=== PATIENT | female | born 1950 | race Caucasian/White ===

== ENCOUNTER → 2017-09-04 | Outpatient (CLI) | payer MEDICARE ==
--- NOTE | 2017-09-05 11:52 | Diagnostic Imaging Report ---
INDICATION: Routine screening. Comparison is made with prior mammogram from 01/29/2012. The current study was also evaluated with a Computer Aided Detection (CAD) system. Moderate parenchymal density is identified bilaterally. There is a circumscribed rounded density identified in the left breast mid depth approximately 8 mm in size. This appears to be superiorly located on the MLO view at approximately 12 to 1 o'clock location. There appears to be a smaller adjacent circumscribed density. These may represent cysts. There are benign calcifications present. No malignant appearing microcalcifications are seen. The axillae are unremarkable. IMPRESSION: BI-RADS zero Enlarging density in the superior left breast 12-1 o'clock location at mid depth, likely enlarging cysts. Further evaluation with ultrasound is recommended for confirmation. Dictated by: Dictated on workstation # [id number]
== END ==
LOC: RAD 09:57
PROVIDERS: ATTEND Family Medicine
DX: Z12.31 Encounter for screening mammogram for malignant neoplasm of breast (principal)
CPT/HCPCS: 77067

== ENCOUNTER → 2017-09-21 | Outpatient (CLI) | payer MEDICARE ==
--- NOTE | 2017-09-21 08:25 | Diagnostic Imaging Report ---
Indication: Left breast density. Patient presents for additional views. Comparison is made with recent screening study from 09/04/2017. The current study was also evaluated with a Computer Aided Detection (CAD) system. 3-D spot compression cc and mL views as well as conventional 3-D 90 degree lateral view was performed. Additional views confirm a fairly well defined density in the upper and slightly outer left breast at mid depth, likely cysts. No other mass is seen. IMPRESSION: BI-RADS zero Additional views confirm the presence of a well-defined density in the upper-outer left breast. Further evaluation with ultrasound is recommended. ACR BI-RADS Category 0: Incomplete. (Needs additional imaging evaluation). Result letter will be mailed to the patient. Note: At least 10% of breast cancer is not imaged by mammography. Dictated by: Dictated on workstation # [id number]
--- NOTE | 2017-09-21 18:04 | Diagnostic Imaging Report ---
INDICATION: Left breast density. The study is performed for further evaluation. COMPARISON: Correlation is made with the diagnostic mammogram earlier the same day. FINDINGS: Sonographic interrogation of the upper and outer aspect of the left breast was performed. There is a simple cyst at the 12:30 location of the left breast, 3 cm from the nipple measuring 12 mm x 6 mm x 8 mm. This does correspond in size and location to the density noted on mammography. No solid mass is detected. There appears to be a smaller adjacent cyst present. IMPRESSION: Simple cyst at 12:30 location of the left breast corresponding to the mammographic abnormality. The patient may return to routine annual screening mammography. ACR BI-RADS Category 2: Benign findings. Dictated by: Dictated on workstation # [id number]
== END ==
LOC: RAD 07:55
PROVIDERS: ATTEND Nurse Practitioner Family
DX: N60.02 Solitary cyst of left breast (principal)
CPT/HCPCS: 76642

== ENCOUNTER → 2018-08-26 | Outpatient (CLI) | payer MEDICARE ==
--- NOTE | 2018-08-26 19:18 | Diagnostic Imaging Report ---
PROCEDURE: US Thyroid. TECHNIQUE: Multiple real-time grayscale images were obtained of the thyroid in various projections. INDICATION: Thyromegaly. FINDINGS: The right thyroid lobe measures 4.2 x 1.5 x 1.5 cm. There is an upper pole nodule, hyperechoic with some echogenic foci which may reflect calcifications. It measures 9 mm maximal. There is a lower pole nodule in the right lobe measuring 9 mm maximal, which appears largely cystic with a coarse eccentric calcification. The left lobe measures 4.1 x 1.4 x 1.2 cm with a 7 mm nodule in its upper pole anteriorly and a 1.2 cm nodule in its lower pole which appears largely cystic. IMPRESSION: Bilateral thyroid nodules, the largest of these are cystic with eccentric coarse benign calcifications. A 9 mm mass in the upper pole of the right lobe is predominantly hyperechoic but is heterogeneous and does show punctate calcifications; its followup is recommended. Repeat exam within one year's time is suggested. Dictated by: Dictated on workstation # [id number]
== END ==
LOC: RAD 09:23
PROVIDERS: ATTEND Family Medicine
DX: E04.2 Nontoxic multinodular goiter (principal)
CPT/HCPCS: 76536

== ENCOUNTER 2018-10-09 10:00 | Outpatient (CLI) | payer MEDICARE ==
[~2018-10-09] VITALS: Ht 177.8 cm; Wt 68.0 kg
[2018-10-09] MEDS ORDERED: CHOL200014 PO (10:10)
[2018-10-09] MEDS ORDERED: CYAN250010 PO (10:10)
[2018-10-09] MEDS ORDERED: MULT-974 PO (10:10)
[2018-10-09] MEDS ORDERED: CALC-927 PO (10:10)
== END 2018-10-09 11:09 ==
LOC: PREOP 10:00
PROVIDERS: ATTEND Surgery
DX: Z01.818 Encounter for other preprocedural examination (principal)

== ENCOUNTER 2018-10-15 07:38 | Day surgery (SDC) | payer MEDICARE ==
[~2018-10-15] VITALS: Ht 177.8 cm; Wt 68.0 kg
[~2018-10-15 07:38] MED LIST: CALC-927 PO; CHOL200014 PO; CYAN250010 PO; MULT-974 PO
[2018-10-15] MEDS ORDERED: LACTATED RINGERS 1,000 ML IV ONE (07:52)
[2018-10-15 08:00] VITALS: BP 113/81
[2018-10-15] MEDS ORDERED: LACTATED RINGERS 1,000 ML IV PRN (08:00)
[2018-10-15] MEDS ORDERED: proPOfol 200 MG/20 ML (DIPRIVAN) VIAL IV ONE (08:54)
[2018-10-15] MEDS ORDERED: MIDAZOLAM 2 MG/2 ML (VERSED) VIAL ONE (08:54)
--- NOTE | 2018-10-15 09:52 | Progress Note-Post Operative ---
Post-Operative Progess Note Surgeon (s)/Tele Rn (s) Surgeon YANELIS ECHEVARRIA DO Tele Rn: na Pre-Operative Diagnosis screening colonoscopy Post-Operative Diagnosis colon polyp, diverticulosis Procedure & Operative Findings Date of Procedure 10/15/18 Procedure Performed/Findings colonoscopy c hot bx polypectomy Anesthesia Type per mda Estimated Blood Loss Estimated blood loss (mL): na Specimens/Packing Specimens Removed transverse colon polyp YANELIS ECHEVARRIA DO Oct 15, 2018 09:52
[2018-10-15 09:55] VITALS: BP 112/65
--- NOTE | 2018-10-15 09:55 | Discharge Inst-Simple/Standard ---
Discharge Inst-Standard Patient Instructions/Follow Up Plan of Care/Instructions/FU: 2weeks Nedra Activity as Tolerated: Yes Discharge Diet: Regular Diet (high fiber) YANELIS ECHEVARRIA DO Oct 15, 2018 09:55
[2018-10-15 10:25] VITALS: BP 113/93
[2018-10-15 10:35] VITALS: BP 113/93
--- OUTSIDE RECORDS SUMMARY | 2018-10-15 10:59 | XMS REPORT | CCD ---
Author Author Shirley Ramos Organization Shirley Ramos MD, [facility] Address [address] [place] [address] Phone Care Team Providers Care Mains And Service Supervisor Name Role Phone PP Unavailable CCM Unavailable Summary Purpose Interface Exchange Insurance Providers Payer name Policy type / Coverage type Covered green party ID Effective Begin Date Effective End Date WPS Medicare Part B Medicare Part B [id number] Unknown [facility] Medicare Part B [id number] Unknown Family history Sister Diagnosis Age At Onset No Known Diseases N/A Father Diagnosis Age At Onset Arthritis Unknown old age Unknown Brother Diagnosis Age At Onset No Known Diseases N/A Mother Diagnosis Age At Onset Breast cancer Unknown motor vehicle accident Unknown Social History Social History Element Codes Description Effective Dates Marital status Unknown Dio 08/28/2017 Number of children Unknown 4 40, 38, 33, 30 y/o - they all live away from [place] 08/[address]: 024349419 Never smoker 08/28/[address]: 488745450 Never drinks alcohol 08/28/2017 Has the patient ever used illegal drugs? Unknown Has never used illegal drugs 08/28/2017 Allergies, Adverse Reactions, Alerts Substance Reaction Codes Entered Date Inactivated Date Status * NO KNOWN DRUG ALLERGIES Unknown 08/28/2017 No Inactive Date Active Past Medical History Illness Codes Condition Status Onset Date Resolved Date Encounter for gynecological examination (general) (routine ) with abnormal findings ICD-9: V72.31 ICD-10: Z01.411 Active 08/22/2018 Unknown Other fatigue ICD-9: 780.79 ICD-10: R53.83 Active 08/28/2017 Unknown Polyp of cervix uteri ICD-9: 622.7 ICD-10: N84.1 Active 08/22/2018 Unknown Actinic keratosis ICD- 9: 702.0 ICD-10: L57.0 Active 06/04/2018 Unknown Diffuse cystic mastopathy of right breast ICD-9: 610.1 ICD-10: N60.11 Active 08/28/2017 Unknown Problems Condition Codes Effective Dates Condition Status Encounter for gynecological examination (general) (routine ) with abnormal findings ICD-9: V72.31 ICD-10: Z01.411 08/22/2018 Active Other fatigue ICD-9: 780.79 ICD-10: R53.83 08/28/2017 Active Polyp of cervix uteri ICD-9: 622.7 ICD-10: N84.1 08/22/2018 Active Actinic keratosis ICD- 9: 702.0 ICD-10: L57.0 06/04/2018 Active Diffuse cystic mastopathy of right breast ICD-9: 610.1 ICD-10: N60.11 08/28/2017 Active Medications Medication Codes Instructions Start Date Stop Date Status Fill Instructions citalopram 20 mg tablet RxNorm: 902701 1 Tablet(s) PO daily 06/03/2018 Inactive citalopram 20 mg tablet RxNorm: 675647 1 Tablet(s) PO daily 11/18/2017 Inactive citalopram 20 mg tablet RxNorm: 477354 1 Tablet(s) PO daily No Start Date 08/27/2017 Inactive Medication Administered No Medication Administered data Immunizations Vaccine Codes Date Status Tetanus, Diptheria, Pertussis CVX: 113 completed Tetanus/Diptheria CVX: 113 12/30/2006 completed Assessments Condition Codes Effective Dates Polyp of cervix uteri ICD-10: N84.1 ICD-9: 622.7 08/22/2018 Encounter for gynecological examination (general) (routine) with abnormal findings ICD-10: Z01.411 ICD-9: V72.31 08/22/2018 Other fatigue ICD-10: R53.83 ICD-9: 780.79 08/22/2018 Actinic keratosis ICD-10: L57.0 ICD-9: 702.0 06/04/2018 Diffuse cystic mastopathy of right breast ICD-10: N60.11 ICD-9: 610.1 08/28/2017 Reason For Visit Reason For Visit Effective Dates Notes well woman exam (65+ years) 08/22/2018 skin lesion 06/04/2018 breast complaint 08/28/2017 Results Observation Observation Code Item Item Code Result Date Cbc With Differential Ord2 WBC 5.41 K/ul 08/28/2018 Cbc With Differential Ord2 RBC 4.72 M/ul 08/28/2018 Cbc With Differential Ord2 HGB 13.8 g/dl 08/28/2018 Cbc With Differential Ord2 HCT 42.8 % 08/28/2018 Cbc With Differential Ord2 Neut% 57.9 % 08/28/2018 Cbc With Differential Ord2 MCV 90.7 fl 08/28/2018 Cbc With Differential Ord2 Lymph% 27.5 % 08/28/2018 Cbc With Differential Ord2 MCH 29.2 pg 08/28/2018 Cbc With Differential Ord2 Mohave% 8.7 % 08/28/2018 Cbc With Differential Ord2 MCHC 32.2 pg 08/28/2018 Cbc With Differential Ord2 Eos% 4.6 % 08/28/2018 Cbc With Differential Ord2 PLT 289 K/ul 08/28/2018 Cbc With Differential Ord2 Baso% 1.3 % 08/28/2018 Cbc With Differential Ord2 RDW 14.2 % 08/28/2018 Cbc With Differential Ord2 Neut ABS# 3.13 K/ul 08/28/2018 Cbc With Differential Ord2 Lymph ABS# 1.49 K/ul 08/28/2018 Cbc With Differential Ord2 [place] ABS# 0.5 K/ul 08/28/2018 Cbc With Differential Ord2 Eos ABS# 0.3 K/ul 08/28/2018 Cbc With Differential Ord2 Baso ABS# 0.1 K/ul 08/28/2018 Cbc With Differential Ord2 WBC 4.23 K/ul 10/12/2017 Cbc With Differential Ord2 RBC 4.76 M/ul 10/12/2017 Cbc With Differential Ord2 HGB 13.6 g/dl 10/12/2017 Cbc With Differential Ord2 HCT 42.6 % 10/12/2017 Cbc With Differential Ord2 Neut% 44.1 % 10/12/2017 Cbc With Differential Ord2 MCV 89.5 fl 10/12/2017 Cbc With Differential Ord2 Lymph% 36.6 % 10/12/2017 Cbc With Differential Ord2 MCH 28.6 pg 10/12/2017 Cbc With Differential Ord2 Mohave% 9.2 % 10/12/2017 Cbc With Differential Ord2 MCHC 31.9 pg 10/12/2017 Cbc With Differential Ord2 Eos% 8.0 % 10/12/2017 Cbc With Differential Ord2 PLT 327 K/ul 10/12/2017 Cbc With Differential Ord2 Baso% 2.1 % 10/12/2017 Cbc With Differential Ord2 RDW 14.2 % 10/12/2017 Cbc With Differential Ord2 Neut ABS# 1.86 K/ul 10/12/2017 Cbc With Differential Ord2 Lymph ABS# 1.55 K/ul 10/12/2017 Cbc With Differential Ord2 Mohave ABS# 0.4 K/ul 10/12/2017 Cbc With Differential Ord2 Eos ABS# 0.3 K/ul 10/12/2017 Cbc With Differential Ord2 Baso ABS# 0.1 K/ul 10/12/2017 Comp Metabolic Dag113 NA 140 mEq/L 08/29/2017 Comp Metabolic Mta107 K 4.2 mEq/L 08/29/2017 Comp Metabolic Ohn239 CL 106 mEq/L 08/29/2017 Comp Metabolic Ypq017 CO2 28.0 mEq/L 08/29/2017 Comp Metabolic Myn211 ANION GAP 10 08/29/2017 Comp Metabolic Feo456 GLUCOSE 81 mg/dL 08/29/2017 Comp Metabolic Sld505 Creat 0.6 mg/dL 08/29/2017 Comp Metabolic Awz600 eGFR 106 ml/min/1.73m2 08/29/2017 Comp Metabolic Drg790 BUN 13 mg/dL 08/29/2017 Comp Metabolic Axp910 B/C Ratio 21.7 Ratio 08/29/2017 Comp Metabolic Roh766 CALCIUM 9.3 mg/dL 08/29/2017 Comp Metabolic Rei856 ALK PHOS 67 U/L 08/29/2017 Comp Metabolic Apk541 AST(SGOT) 16 U/L 08/29/2017 Comp Metabolic Mov653 ALT(SGPT) 12 U/L 08/29/2017 Comp Metabolic Ewk709 BILI T 0.5 mg/dL 08/29/2017 Comp Metabolic Wgf530 ALBUMIN 4.1 g/dL 08/29/2017 Comp Metabolic Ntf024 TPRO 6.7 g/dL 08/29/2017 Comp Metabolic Snq735 GLOB 2.6 g/dL 08/29/2017 Comp Metabolic Vcd086 A/G Ratio 1.5 Ratio 08/29/2017 Comp Metabolic Llq824 Osmo 279 mOsmo 08/29/2017 Cbc With Differential Ord2 WBC 4.13 K/ul 08/29/2017 Cbc With Differential Ord2 RBC 4.76 M/ul 08/29/2017 Cbc With Differential Ord2 HGB 13.6 g/dl 08/29/2017 Cbc With Differential Ord2 HCT 42.9 % 08/29/2017 Cbc With Differential Ord2 Neut% 38.0 % 08/29/2017 Cbc With Differential Ord2 MCV 90.1 fl 08/29/2017 Cbc With Differential Ord2 Lymph% 42.9 % 08/29/2017 Cbc With Differential Ord2 MCH 28.6 pg 08/29/2017 Cbc With Differential Ord2 Mohave% 11.1 % 08/29/2017 Cbc With Differential Ord2 MCHC 31.7 pg 08/29/2017 Cbc With Differential Ord2 Eos% 6.8 % 08/29/2017 Cbc With Differential Ord2 PLT 315 K/ul 08/29/2017 Cbc With Differential Ord2 Baso% 1.2 % 08/29/2017 Cbc With Differential Ord2 RDW 14.4 % 08/29/2017 Cbc With Differential Ord2 Neut ABS# 1.57 K/ul 08/29/2017 Cbc With Differential Ord2 Lymph ABS# 1.77 K/ul 08/29/2017 Cbc With Differential Ord2 [place] ABS# 0.5 K/ul 08/29/2017 Cbc With Differential Ord2 Eos ABS# 0.3 K/ul 08/29/2017 Cbc With Differential Ord2 Baso ABS# 0.1 K/ul 08/29/2017 Tsh Ord6 TSH (3rd IS) 1.98 uIU/mL 08/29/2017 Lipid Ord30 CHOL 212 mg/dL 08/29/2017 Lipid Ord30 HDL 71.0 mg/dl 08/29/2017 Lipid Ord30 TRIG 51 mg/dL 08/29/2017 Lipid Ord30 LDL 131 mg/dL 08/29/2017 Lipid Ord30 C/HDL 3.0 Ratio 08/29/2017 Review of Systems System Result Effective Dates Constitutional No recent illness 2018 Constitutional No chills 08/22/2018 Constitutional fatigue 08/22/2018 Constitutional No fever 08/22/2018 Constitutional No insomnia 08/22/2018 Constitutional No malaise 08/22/2018 Eyes No vision change 08/22/2018 Ears/Nose/Throat/Neck No dizziness 2018 Ears/Nose/Throat/Neck No dysphagia 2018 Ears/Nose/Throat/Neck No headache 2018 Ears/Nose/Throat/Neck No hearing loss Ears/Nose/Throat/Neck No nasal allergies 08/22/2018 Ears/Nose/Throat/Neck No sore throat Cardiovascular No chest pain/pressure Cardiovascular No dyspnea 08/22/2018 Cardiovascular No edema 08/22/2018 Cardiovascular No exercise intolerance Cardiovascular No fatigue 08/22/2018 Cardiovascular No near-syncope/dizziness 08/22/2018 Respiratory No chest tightness 2018 Respiratory No cough 08/22/2018 Respiratory No dyspnea 08/22/2018 Respiratory No pedal edema 08/22/2018 Gastrointestinal No abdominal pain 2018 Gastrointestinal No constipation 2018 Gastrointestinal No diarrhea 08/22/2018 Gastrointestinal No gastroesophageal reflux 08/22/2018 Gastrointestinal No nausea 08/22/2018 Gastrointestinal No vomiting 08/22/2018 Genitourinary/Nephrology No dysuria 08/22 Genitourinary/Nephrology No nocturia Genitourinary/Nephrology No urinary incontinence 08/22/2018 Musculoskeletal No stiffness 08/22/2018 Musculoskeletal No swelling 08/22/2018 Musculoskeletal No muscle weakness 2018 Musculoskeletal No myalgias 08/22/2018 Dermatologic No rash 08/22/2018 Dermatologic No sores 08/22/2018 Neurologic No dizziness 08/22/2018 Neurologic No headache 08/22/2018 Neurologic No neck pain 08/22/2018 Neurologic No syncope 08/22/2018 Psychiatric No anxiety 08/22/2018 Psychiatric No depression 08/22/2018 Constitutional No recent illness 2017 Constitutional No anorexia 06/04/2018 Constitutional No fever 06/04/2018 Dermatologic skin lesion 06/04/2018 Constitutional No recent illness 2017 Constitutional No chills 08/28/2017 Constitutional No fatigue 08/28/2017 Constitutional No fever 08/28/2017 Constitutional No insomnia 08/28/2017 Constitutional No malaise 08/28/2017 Eyes No vision change 08/28/2017 Ears/Nose/Throat/Neck No dizziness 2017 Ears/Nose/Throat/Neck No dysphagia 2017 Ears/Nose/Throat/Neck No headache 2017 Ears/Nose/Throat/Neck No hearing loss Ears/Nose/Throat/Neck No nasal allergies 08/28/2017 Ears/Nose/Throat/Neck No sore throat Ears/Nose/Throat/Neck No postnasal drip 08/28/2017 Cardiovascular No chest pain/pressure Cardiovascular No dyspnea 08/28/2017 Cardiovascular No edema 08/28/2017 Cardiovascular No exercise intolerance Cardiovascular No fatigue 08/28/2017 Cardiovascular No near-syncope/dizziness 08/28/2017 Respiratory No chest tightness 2017 Respiratory No cough 08/28/2017 Respiratory No dyspnea 08/28/2017 Respiratory No pedal edema 08/28/2017 Gastrointestinal No abdominal pain 2017 Gastrointestinal No constipation 2017 Gastrointestinal No diarrhea 08/28/2017 Gastrointestinal No gastroesophageal reflux 08/28/2017 Gastrointestinal No nausea 08/28/2017 Gastrointestinal No vomiting 08/28/2017 Genitourinary/Nephrology No dysuria 08/28 Genitourinary/Nephrology No nocturia Genitourinary/Nephrology No urinary incontinence 08/28/2017 Musculoskeletal No stiffness 08/28/2017 Musculoskeletal No swelling 08/28/2017 Musculoskeletal No muscle weakness 2017 Musculoskeletal No myalgias 08/28/2017 Dermatologic No rash 08/28/2017 Dermatologic No sores 08/28/2017 Neurologic No dizziness 08/28/2017 Neurologic No headache 08/28/2017 Neurologic No neck pain 08/28/2017 Neurologic No syncope 08/28/2017 Psychiatric No anxiety 08/28/2017 Psychiatric No depression 08/28/2017 Physical Exam Exam Name System Name Item Name Status Result Effective Dates Notes Full Exam - General 1994 Constitutional general appearance Overall: well nourished 08/22/2018 None Full Exam - General 1994 Constitutional general appearance Overall: well developed 08/22/2018 None Full Exam - General 1994 Constitutional general appearance Overall: in no acute distress 08/22/2018 None Full Exam - General 1994 Eyes pupils and irises Overall: pupils equal, round, reactive to light and accomodation 08/22/2018 None Full Exam - General 1994 Eyes conjunctiva /eyelids Overall: conjunctiva clear 08/22/2018 None Full Exam - General 1994 Eyes conjunctiva /eyelids Overall: eyelids normal 08/22/2018 None Full Exam - General 1994 Eyes conjunctiva /eyelids Overall: cornea clear 08/22/2018 None Full Exam - General 1995 Ears/Nose/Throat oral cavity/pharynx/larynx Overall: oropharyngeal mucosa clear 08/22/2018 None Full Exam - General 1995 Ears/Nose/Throat oral cavity/pharynx/larynx Overall: no masses 08/22/2018 None Full Exam - General 1995 Ears/Nose/Throat oral cavity/pharynx/larynx Overall: oral mucosa clear 08/22/2018 None Full Exam - General 1994 Ears/Nose/Throat lips/teeth/gingiva Overall: benign gingiva 08/22/2018 None Full Exam - General 1995 Ears/Nose/Throat lips/teeth/gingiva Overall: no masses 08/22/2018 None Full Exam - General 1994 Ears/Nose/Throat lips/teeth/gingiva Overall: normal dentition 08/22/2018 None Full Exam - General 1994 Ears/Nose/Throat lips/teeth/gingiva Overall: benign lips 08/22/2018 None Full Exam - General 1994 Respiratory auscultation Overall: breath sounds clear bilaterally 08/22/2018 None Full Exam - General 1994 Respiratory respiratory effort/rhythm Overall: normal rate 08/22/2018 None Full Exam - General 1994 Respiratory respiratory effort/rhythm Overall: no retractions 08/22/2018 None Full Exam - General 1994 Cardiovascular extremities Overall: no clubbing 08/22/2018 None Full Exam - General 1994 Cardiovascular auscultation of heart Overall: regular rate 08/22/2018 None Full Exam - General 1994 Cardiovascular auscultation of heart Overall: normal heart sounds 08/22/2018 None Full Exam - General 1994 Cardiovascular auscultation of heart Overall: no murmurs 08/22/2018 None Full Exam - General 1994 Chest/Breast breast/chest inspection Overall: normal chest shape 08/22/2018 None Full Exam - General 1994 Chest/Breast breast/chest inspection Overall: breasts to symmetric and without lesions 08/22/2018 None Full Exam - General 1994 Abdomen abdominal exam Overall: no tenderness 08/22/2018 None Full Exam - General 1994 Abdomen abdominal exam Overall: normal bowel sounds 08/22/2018 None Full Exam - General 1994 Abdomen liver and spleen exam Overall: no hepatosplenomegaly 08/22/2018 None Full Exam - General 1994 Abdomen liver and spleen exam Overall: no stigmata of chronic liver disease 08/22/2018 None Full Exam - General 1994 Lymphatic neck nodes Overall: anterior cervical chain benign 08/22/2018 None Full Exam - General 1994 Lymphatic neck nodes Overall: posterior cervical chain benign 08/22/2018 None Full Exam - General 1994 Genitourinary urethra Overall: no masses 08/22/2018 None Full Exam - General 1994 Genitourinary bladder Overall: no tenderness 08/22/2018 None Full Exam - General 1994 Genitourinary adnexa/parametria Overall: no tenderness 08/22/2018 None Full Exam - General 1994 Genitourinary labia and vagina Overall: no lesions 08/22/2018 None Full Exam - General 1994 Genitourinary labia and vagina Overall: normal hair distribution 08/22/2018 None Full Exam - General 1994 Genitourinary uterus Overall: normal size 08/22/2018 None Full Exam - General 1994 Genitourinary cervix Inspection: cervical polyp 08/22/2018 at 6 oclock Full Exam - General 1994 Psychiatric mood and affect Mood: happy 08/22/2018 None Full Exam - General 1994 Psychiatric mood and affect Overall: normal mood and affect 08/22/2018 None Full Exam - General 1994 Psychiatric orientation/consciousness Overall: oriented to person, place and time 08/22/2018 None Full Exam - General 1994 Neurologic cranial nerves Overall: crainial nerves 2 - 12 grossly intact 08/22/2018 None Full Exam - General 1994 Integument inspection of skin Overall: no rash, lesions 08/22/2018 None Full Exam - General 1994 Musculoskeletal gait and station Overall: normal station 08/22/2018 None Full Exam - General 1994 Musculoskeletal gait and station Overall: normal gait 08/22/2018 None Full Exam - Dermatology Constitutional general appearance Overall: well nourished 06/04/2018 None Full Exam - Dermatology Constitutional general appearance Overall: well developed 06/04/2018 None Full Exam - Dermatology Constitutional general appearance Overall: in no acute distress 06/04/2018 None Full Exam - Dermatology Constitutional general appearance Overall: of normal body habitus 06/04/2018 None Full Exam - Dermatology Constitutional general appearance Overall: well groomed 06/04/2018 None Full Exam - Dermatology Psychiatric orientation Overall: oriented to person, place and time 06/04/2018 None Full Exam - Dermatology Integument insp & palp - left upper extremity Location: on the hand 06/04/2018 white crusted area left hand -[place] Full Exam - General 1994 Constitutional general appearance Development: well developed 08/28/2017 None Full Exam - General 1994 Constitutional general appearance Development: appears stated age 0208/28/2017 None Full Exam - General 1994 Constitutional general appearance Hygiene/Attention to Grooming: good hygiene 08/28/2017 None Full Exam - General 1994 Eyes conjunctiva /eyelids Overall: conjunctiva clear 08/28/2017 None Full Exam - General 1994 Eyes conjunctiva /eyelids Overall: cornea clear 08/28/2017 None Full Exam - General 1994 Eyes conjunctiva /eyelids Overall: eyelids normal 08/28/2017 None Full Exam - General 1994 Eyes pupils and irises Overall: pupils equal, round, reactive to light and accomodation 08/28/2017 None Full Exam - General 1994 Ears/Nose/Throat otoscopic exam Overall: external auditory canals clear 08/28/2017 None Full Exam - General 1994 Ears/Nose/Throat otoscopic exam Overall: tympanic membranes clear 08/28/2017 None Full Exam - General 1994 Ears/Nose/Throat lips/teeth/gingiva Overall: benign lips 08/28/2017 None Full Exam - General 1994 Ears/Nose/Throat lips/teeth/gingiva Overall: normal dentition 08/28/2017 None Full Exam - General 1994 Ears/Nose/Throat oral cavity/pharynx/larynx Overall: oral mucosa clear 08/28/2017 None Full Exam - General 1995 Ears/Nose/Throat oral cavity/pharynx/larynx Overall: oropharyngeal mucosa clear 08/28/2017 None Full Exam - General 1994 Ears/Nose/Throat oral cavity/pharynx/larynx Overall: hypopharynx benign 08/28/2017 None Full Exam - General 1994 Ears/Nose/Throat oral cavity/pharynx/larynx Overall: no masses 08/28/2017 None Full Exam - General 1994 Respiratory auscultation Overall: breath sounds clear bilaterally 08/28/2017 None Full Exam - General 1994 Respiratory respiratory effort/rhythm Overall: no retractions 08/28/2017 None Full Exam - General 1994 Respiratory respiratory effort/rhythm Overall: normal rate 08/28/2017 None Full Exam - General 1994 Cardiovascular extremities Overall: no clubbing 08/28/2017 None Full Exam - General 1994 Cardiovascular auscultation of heart Overall: regular rate 08/28/2017 None Full Exam - General 1994 Cardiovascular auscultation of heart Overall: normal heart sounds 08/28/2017 None Full Exam - General 1994 Abdomen abdominal exam Overall: no tenderness 08/28/2017 None Full Exam - General 1994 Abdomen abdominal exam Overall: normal bowel sounds 08/28/2017 None Full Exam - General 1994 Lymphatic neck nodes Overall: anterior cervical chain benign 08/28/2017 None Full Exam - General 1994 Lymphatic neck nodes Overall: posterior cervical chain benign 08/28/2017 None Full Exam - General 1995 Musculoskeletal spine, ribs and pelvis Overall: spine benign 08/28/2017 None Full Exam - General 1994 Musculoskeletal spine, ribs and pelvis Overall: sacroiliac joint benign 08/28/2017 None Full Exam - General 1994 Musculoskeletal spine, ribs and pelvis Overall: good posture 08/28/2017 None Full Exam - General 1994 Musculoskeletal head and neck Overall: head atraumatic 08/28/2017 None Full Exam - General 1994 Musculoskeletal head and neck Overall: cervical spine benign 08/28/2017 None Full Exam - General 1994 Integument inspection of skin Overall: few scattered moles, no gross abnormalities 08/28/2017 None Full Exam - General 1994 Neurologic cranial nerves Overall: crainial nerves 2 - 12 grossly intact 08/28/2017 None Full Exam - General 1994 Psychiatric orientation/consciousness Overall: oriented to person, place and time 08/28/2017 None Full Exam - General 1994 Psychiatric mood and affect Overall: normal mood and affect 08/28/2017 None Full Exam - General 1994 Chest/Breast breast/chest inspection Overall: normal chest shape 08/28/2017 None Full Exam - General 1994 Chest/Breast breast and axillae palpation Upper inner quadrant: soft 08/28/2017 cyst at about 3 oclock on right and 11 oclock on left. Procedures Procedure Codes Date DESTRUCT PREMALG LESION CPT-4: 31586 06/04/2018 Vital Signs Date Vital 08/22/2018 Blood Pressure 1: 116/76 Code : 8480-6 BMI: 23.3 Code : 18921-4 Heart Rate 1 : 95 bpm Height: 5'8" SpO2: 96% Weight: 153 lbs 06/04/2018 Blood Pressure 1: 122/78 Code : 8480-6 BMI: 24.2 Code : 66041-4 Heart Rate 1 : 87 bpm Height: 5'8" SpO2: 98% Weight: 159 lbs 08/28/2017 Blood Pressure 1: 108/70 Code : 8480-6 BMI: 24.2 Code : 08092-0 Heart Rate 1 : 92 bpm Height: 5'8" SpO2: 98% Weight: 159 lbs Functional Status No Functional Status data History of Present Illness Symptom Name Status Result Effective Date Notes Menstrual History menopause at age _ 08/22/2018 None Obstetrical History 4 total pregnancies 08/22/2018 None Obstetrical History 4 full term 08/22/2018 None Breast/Classifications Officer Cc/Cm Complaints menopausal symptoms 08/22/2018 hot flashes Quality acute 2017 None Quality non-tender None Location finger and/or fingers of left hand 06/04/2018 None Onset and Resolution ongoing 06/04/2018 None Triggers no known associated factors 06/04/2018 None Onset of Symptom a couple months ago 06/04/2018 None breast complaint Quality mass 08/28/2017 None breast complaint Onset and Resolution ongoing 08/28/2017 None breast complaint Triggers no known associated factors 08/28/2017 None breast complaint Severity mild 08/28/2017 None breast complaint Pertinent Findings Denies back pain 08/28/2017 None Advance Directives No Advance Directive data Encounters Encounter Performer Location Codes Date ( [id number] EST. PATIENT, LEVEL IV Diagnosis: Encounter for gynecological examination (general) (routine) with abnormal findings[ICD10: Z01.411] Diagnosis: Polyp of cervix uteri[ICD10: N84.1] Diagnosis: Other fatigue[ICD10: R53.83] [facility] CPT- 4: 53685 08/22/2018 ([id number]) OFFICE VISIT, NEW - LEVEL 4 Diagnosis: Diffuse cystic mastopathy of right breast[ICD10: N60.11] Diagnosis: Other fatigue[ICD10: R53.83] [facility] CPT- 4: 10255 08/28/2017 Plan of Care Planned Activity Notes Codes Status Date Referral: Kingsley Sneed WPtel:[phone] Referral Completed 09/11/2018 Care Plan: PAP 2 Pending 08/23/2018 Visit Plan: Well Adult Female - exam completed. Pap and breast exam completed. Pt will be called with results of her testing. She was advised to continue with yearly annual exams. Cervical polyp - recommended evaluation by Dr. Yevgeniy Solano - needs to have labs, start on vitamin d and vitamin b12 She needs a colonoscopy 08/22/2018 Visit Plan: Well Adult Female - exam completed. Pap and breast exam completed. Pt will be called with results of her testing. She was advised to continue with yearly annual exams. Cervical polyp - recommended evaluation by Dr. Yevgeniy Solano - needs to have labs, start on vitamin d and vitamin b12 She needs a colonoscopy 08/22/2018 Appointment: Shirley Ramos WPtel: [address] [place] [address] Well Woman 08/22/2018 Patient Education: Patient Medication Summary Completed 08/22/2018 Care Plan: Referral Order SNOMED-CT : 661231511 Pending 08/22/2018 Care Plan: Referral Order SNOMED-CT : 513407705 Pending 08/22/2018 Visit Plan: Actinic Keratosis - treated with cryotherapy x 3, pt advised on how to appropriately care for the lesion. Call if not improved after thorough healing. 06/04/2018 Appointment: Yesenia Zayas WPtel: [facility] [address] (15 min) Moderate 06/04/2018 Patient Education: Patient Medication Summary Completed 06/04/2018 Visit Plan: Blepharospasm - chronic - pt on citalopram - pt wants to taper off of the medication and she was instructed to decrease to 10mg daily x 2 weeks then every other day x 1 week then okay to stop. If symptoms increase then restart medication at 10mg and increase up as needed to help decrease symptoms of blepharospasm. Hx of Cysts in breast - check mammogram. I have advised pt to decrease caffeine intake. 08/28/2017 Visit Plan: Blepharospasm - chronic - pt on citalopram - pt wants to taper off of the medication and she was instructed to decrease to 10mg daily x 2 weeks then every other day x 1 week then okay to stop. If symptoms increase then restart medication at 10mg and increase up as needed to help decrease symptoms of blepharospasm. Hx of Cysts in breast - check mammogram. I have advised pt to decrease caffeine intake. 08/28/2017 Appointment: Shirley Ramos WPtel: [facility] [address] New Patient 08/28/2017 Patient Education: Patient Medication Summary Completed 08/28/2017 Care Plan: SCREENINGMAMMOGRAPHYDIGITAL LOINC : 08337-2 Pending 08/28/2017 Referral: Kingsley Mattabar WPtel:[phone] Referral Appointment Requested Referral: Lola Vuong [phone] [facility] Referral Appointment Requested Instructions Comment . Blepharospasm - chronic - pt on citalopram - pt wants to taper off of the medication and she was instructed to decrease to 10mg daily x 2 weeks then every other day x 1 week then okay to stop. If symptoms increase then restart medication at 10mg and increase up as needed to help decrease symptoms of blepharospasm. Hx of Cysts in breast - check mammogram. I have advised pt to decrease caffeine intake. . Blepharospasm - chronic - pt on citalopram - pt wants to taper off of the medication and she was instructed to decrease to 10mg daily x 2 weeks then every other day x 1 week then okay to stop. If symptoms increase then restart medication at 10mg and increase up as needed to help decrease symptoms of blepharospasm. Hx of Cysts in breast - check mammogram. I have advised pt to decrease caffeine intake. . Actinic Keratosis - treated with cryotherapy x 3, pt advised on how to appropriately care for the lesion. Call if not improved after thorough healing. Vitamin D 5000 units daily Vitamin B12 liquid or dissolving tablet 2000mcg daily.. Well Adult Female - exam completed. Pap and breast exam completed. Pt will be called with results of her testing. She was advised to continue with yearly annual exams. Cervical polyp - recommended evaluation by Dr. Yevgeniy Solano - needs to have labs, start on vitamin d and vitamin b12 She needs a colonoscopy Vitamin D 5000 units daily Vitamin B12 liquid or dissolving tablet 2000mcg daily.. Well Adult Female - exam completed. Pap and breast exam completed. Pt will be called with results of her testing. She was advised to continue with yearly annual exams. Cervical polyp - recommended evaluation by Dr. Yevgeniy Solano - needs to have labs, start on vitamin d and vitamin b12 She needs a colonoscopy
--- OUTSIDE RECORDS SUMMARY | 2018-10-15 11:00 | XMS REPORT | CCD ---
Author Author Shirley Ramos Organization Shirley Ramos MD, [facility] Address [address] [place] [address] Phone Care Team Providers Care Residential Leasing Manager Name Role Phone PP Unavailable CCM Unavailable Summary Purpose Interface Exchange Insurance Providers Payer name Policy type / Coverage type Covered democrat ID Effective Begin Date Effective End Date WPS Medicare Part B Medicare Part B [id number] Unknown [facility] Medicare Part B [id number] Unknown Family history Sister Diagnosis Age At [...] y/o - they all live away from [place] 08/[address]: 921249288 Never smoker 08/28/[address]: 321924311 Never drinks alcohol 08/28/2017 Has the patient [...] Fill Instructions citalopram 20 mg tablet RxNorm: 371517 1 Tablet(s) PO daily 06/03/2018 Inactive citalopram 20 mg tablet RxNorm: 777042 1 Tablet(s) PO daily 11/18/2017 Inactive citalopram 20 mg tablet RxNorm: 279084 1 Tablet(s) PO daily No Start Date [...] Result Date Cbc With Differential Ord2 WBC 4.23 K/ul 10/12/2017 Cbc With Differential Ord2 RBC 4.76 M/ul 10/12/2017 Cbc With Differential Ord2 HGB 13.6 g/dl 10/12/2017 Cbc With Differential Ord2 Neut% 44.1 % 10/12/2017 Cbc With Differential Ord2 HCT 42.6 % 10/12/2017 Cbc With Differential Ord2 MCV 89.5 fl 10/12/2017 Cbc With Differential Ord2 Lymph% 36.6 % 10/12/2017 Cbc With Differential Ord2 MCH 28.6 pg 10/12/2017 Cbc With Differential Ord2 [place]% 9.2 % 10/12/2017 Cbc With Differential Ord2 Eos% 8.0 % 10/12/2017 Cbc With Differential Ord2 MCHC 31.9 pg 10/12/2017 Cbc With Differential Ord2 PLT 327 K/ul 10/12/2017 Cbc With Differential Ord2 Baso% 2.1 % 10/12/2017 Cbc With Differential Ord2 RDW 14.2 % 10/12/2017 Cbc With Differential Ord2 Neut ABS# 1.86 K/ul 10/12/2017 Cbc With Differential Ord2 Lymph ABS# 1.55 K/ul 10/12/2017 Cbc With Differential Ord2 [place] ABS# 0.4 K/ul 10/12/2017 Cbc With Differential Ord2 Eos ABS# 0.3 K/ul 10/12/2017 Cbc With Differential Ord2 Baso ABS# 0.1 K/ul 10/12/2017 Comp Metabolic Jvi531 NA 140 mEq/L 08/29/2017 Comp Metabolic Gpj353 K 4.2 mEq/L 08/29/2017 Comp Metabolic Tdl792 CL 106 mEq/L 08/29/2017 Comp Metabolic Aob222 CO2 28.0 mEq/L 08/29/2017 Comp Metabolic Xbg485 ANION GAP 10 08/29/2017 Comp Metabolic Fwm720 GLUCOSE 81 mg/dL 08/29/2017 Comp Metabolic Uvk591 Creat 0.6 mg/dL 08/29/2017 Comp Metabolic Ipe784 eGFR 106 ml/min/1.73m2 08/29/2017 Comp Metabolic Qsb191 BUN 13 mg/dL 08/29/2017 Comp Metabolic Ftt002 B/C Ratio 21.7 Ratio 08/29/2017 Comp Metabolic Ucl087 CALCIUM 9.3 mg/dL 08/29/2017 Comp Metabolic Ord855 ALK PHOS 67 U/L 08/29/2017 Comp Metabolic Pts605 AST(SGOT) 16 U/L 08/29/2017 Comp Metabolic Bqw252 ALT(SGPT) 12 U/L 08/29/2017 Comp Metabolic Gbt140 BILI T 0.5 mg/dL 08/29/2017 Comp Metabolic Xfv492 ALBUMIN 4.1 g/dL 08/29/2017 Comp Metabolic Mhi091 TPRO 6.7 g/dL 08/29/2017 Comp Metabolic Vvh130 GLOB 2.6 g/dL 08/29/2017 Comp Metabolic Ovx089 A/G Ratio 1.5 Ratio 08/29/2017 Comp Metabolic Lnj031 Osmo 279 mOsmo 08/29/2017 Cbc With Differential [...] 28.6 pg 08/29/2017 Cbc With Differential Ord2 [place]% 11.1 % 08/29/2017 Cbc With Differential Ord2 [...] 1.77 K/ul 08/29/2017 Cbc With Differential Ord2 [place] ABS# 0.5 K/ul 08/29/2017 Cbc With Differential [...] 08/22/2018 None Full Exam - General 1995 Eyes conjunctiva /eyelids Overall: eyelids normal 08/22/2018 None Full Exam - General 1994 Eyes conjunctiva /eyelids Overall: cornea clear 08/22/2018 None Full Exam - General 1995 Ears/Nose/Throat oral cavity/pharynx/larynx Overall: oropharyngeal mucosa clear 08/22/2018 None Full Exam - General 1994 Ears/Nose/Throat oral cavity/pharynx/larynx Overall: no masses 08/22/2018 None Full Exam - General 1995 Ears/Nose/Throat oral cavity/pharynx/larynx Overall: oral mucosa clear 08/22/2018 None Full Exam - General 1995 Ears/Nose/Throat lips/teeth/gingiva Overall: benign gingiva 08/22/2018 None Full Exam - General 1995 Ears/Nose/Throat lips/teeth/gingiva Overall: no masses 08/22/2018 None Full Exam - General 1995 Ears/Nose/Throat lips/teeth/gingiva Overall: normal dentition 08/22/2018 None Full Exam - General 1995 Ears/Nose/Throat lips/teeth/gingiva Overall: benign lips 08/22/2018 None [...] lips 08/28/2017 None Full Exam - General 1995 Ears/Nose/Throat lips/teeth/gingiva Overall: normal dentition 08/28/2017 None Full Exam - General 1995 Ears/Nose/Throat oral cavity/pharynx/larynx Overall: oral mucosa clear 08/28/2017 None Full Exam - General 1995 Ears/Nose/Throat oral cavity/pharynx/larynx Overall: oropharyngeal mucosa clear 08/28/2017 None Full Exam - General 1995 Ears/Nose/Throat oral cavity/pharynx/larynx Overall: hypopharynx benign 08/28/2017 None Full Exam - General 1995 Ears/Nose/Throat oral cavity/pharynx/larynx Overall: no masses 08/28/2017 [...] 1994 Musculoskeletal spine, ribs and pelvis Overall: spine [...] Procedure Codes Date DESTRUCT PREMALG LESION CPT-4: 47336 06/04/2018 Vital Signs Date Vital 08/22/2018 Blood Pressure 1: 116/76 Code : 8480-6 BMI: 23.3 Code : 28522-6 Heart Rate 1 : 95 bpm Height: 5'8" SpO2: 96% Weight: 153 lbs 06/04/2018 Blood Pressure 1: 122/78 Code : 8480-6 BMI: 24.2 Code : 66705-6 Heart Rate 1 : 87 bpm Height: 5'8" SpO2: 98% Weight: 159 lbs 08/28/2017 Blood Pressure 1: 108/70 Code : 8480-6 BMI: 24.2 Code : 25770-0 Heart Rate 1 : 92 bpm Height: 5'8" SpO2: 98% Weight: 159 lbs Functional Status No Functional Status data History of Present Illness Symptom Name Status Result Effective Date Notes Menstrual History menopause at age _ 08/22/2018 None Obstetrical History 4 total pregnancies 08/22/2018 None Obstetrical History 4 full term 08/22/2018 None 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 PATIENT, LEVEL IV Diagnosis: Encounter for gynecological examination (general) (routine) with abnormal findings[ICD10: Z01.411] Diagnosis: Polyp of cervix uteri[ICD10: N84.1] Diagnosis: Other fatigue[ICD10: R53.83] [facility] CPT- 4: 30514 08/22/2018 ([id number]) OFFICE VISIT, NEW - LEVEL 4 Diagnosis: Diffuse cystic mastopathy of right breast[ICD10: N60.11] Diagnosis: Other fatigue[ICD10: R53.83] [facility] CPT- 4: 82474 08/28/2017 Plan of Care Planned Activity Notes Codes Status Date Visit Plan: Well Adult Female - exam [...] a colonoscopy 08/22/2018 Appointment: Shirley Ramos WPtel: [facility] Well Woman 08/22/2018 Patient Education: Patient Medication Summary Completed 08/22/2018 Care Plan: Referral Order SNOMED-CT : 838431773 Pending 08/22/2018 Care Plan: Referral Order SNOMED-CT : 322502276 Pending 08/22/2018 Visit Plan: Actinic Keratosis - treated with cryotherapy x 3, pt advised on how to appropriately care for the lesion. Call if not improved after thorough healing. 06/04/2018 Appointment: Yesenia Zayas WPtel: [facility] [place] [address] (15 min) Moderate 06/04/2018 Patient Education: Patient [...] caffeine intake. 08/28/2017 Appointment: [facility]Ptel[phone] [facility] [facility] Patient 08/28/2017 Patient Education: Patient Medication Summary Completed 08/28/2017 Care Plan: SCREENINGMAMMOGRAPHYDIGITAL LOINC : 02607-1 Pending 08/28/2017 Referral: Kingsley Sneed WPtel:[phone] Referral Appointment Requested Referral: Lola Vu[phone] [facility] Referral Appointment Requested Instructions Comment . Blepharospasm [...]
--- OUTSIDE RECORDS SUMMARY | 2018-10-15 11:00 | XMS REPORT | CCD ---
Author Author Shirley Ramos Organization Shirley Ramos MD, [facility] Address [address] [place] [address] Phone Care Team Providers Care Sample Patternmaker Name Role Phone PP Unavailable CCM Unavailable Summary Purpose Interface Exchange Insurance Providers Payer name Policy type / Coverage type Covered green party ID Effective Begin Date Effective End Date WPS Medicare Part B Medicare Part B [id number] Unknown [facility] Medicare Part B [id number] Unknown Family history Sister Diagnosis Age At [...] y/o - they all live away from [place] 08/[address]: 473780718 Never smoker 08/28/[address]: 875820366 Never drinks alcohol 08/28/2017 Has the patient [...] Fill Instructions citalopram 20 mg tablet RxNorm: 704147 1 Tablet(s) PO daily 06/03/2018 Inactive citalopram 20 mg tablet RxNorm: 228039 1 Tablet(s) PO daily 11/18/2017 Inactive citalopram 20 mg tablet RxNorm: 255327 1 Tablet(s) PO daily No Start Date [...] 28.6 pg 10/12/2017 Cbc With Differential Ord2 [place]% 9.2 % 10/12/2017 Cbc With Differential Ord2 [...] 1.55 K/ul 10/12/2017 Cbc With Differential Ord2 [place] ABS# 0.4 K/ul 10/12/2017 Cbc With Differential Ord2 Eos ABS# 0.3 K/ul 10/12/2017 Cbc With Differential Ord2 Baso ABS# 0.1 K/ul 10/12/2017 Comp Metabolic Ygx569 NA 140 mEq/L 08/29/2017 Comp Metabolic Dht056 K 4.2 mEq/L 08/29/2017 Comp Metabolic Xrx403 CL 106 mEq/L 08/29/2017 Comp Metabolic Apc407 CO2 28.0 mEq/L 08/29/2017 Comp Metabolic Fzp431 ANION GAP 10 08/29/2017 Comp Metabolic Hez485 GLUCOSE 81 mg/dL 08/29/2017 Comp Metabolic Lfk483 Creat 0.6 mg/dL 08/29/2017 Comp Metabolic Fmb908 eGFR 106 ml/min/1.73m2 08/29/2017 Comp Metabolic Ggb739 BUN 13 mg/dL 08/29/2017 Comp Metabolic Rxp413 B/C Ratio 21.7 Ratio 08/29/2017 Comp Metabolic Mfb990 CALCIUM 9.3 mg/dL 08/29/2017 Comp Metabolic Vuu794 ALK PHOS 67 U/L 08/29/2017 Comp Metabolic Qgj239 AST(SGOT) 16 U/L 08/29/2017 Comp Metabolic Xsh870 ALT(SGPT) 12 U/L 08/29/2017 Comp Metabolic Cfn210 BILI T 0.5 mg/dL 08/29/2017 Comp Metabolic Uzw432 ALBUMIN 4.1 g/dL 08/29/2017 Comp Metabolic Lqa673 TPRO 6.7 g/dL 08/29/2017 Comp Metabolic Khi832 GLOB 2.6 g/dL 08/29/2017 Comp Metabolic Uvs540 A/G Ratio 1.5 Ratio 08/29/2017 Comp Metabolic Ynm030 Osmo 279 mOsmo 08/29/2017 Cbc With Differential [...] 28.6 pg 08/29/2017 Cbc With Differential Ord2 [place]% 11.1 % 08/29/2017 Cbc With Differential Ord2 [...] 1.77 K/ul 08/29/2017 Cbc With Differential Ord2 [place] ABS# 0.5 K/ul 08/29/2017 Cbc With Differential [...] oclock on left. Procedures Procedure Codes Date PAP 2 CPT-4: 7781100 08/22/2018 DESTRUCT PREMALG LESION CPT-4: 02593 06/04/2018 Vital Signs Date Vital 08/22/2018 Blood Pressure 1: 116/76 Code : 8480-6 BMI: 23.3 Code : 76658-2 Heart Rate 1 : 95 bpm Height: 5'8" SpO2: 96% Weight: 153 lbs 06/04/2018 Blood Pressure 1: 122/78 Code : 8480-6 BMI: 24.2 Code : 91673-0 Heart Rate 1 : 87 bpm Height: 5'8" SpO2: 98% Weight: 159 lbs 08/28/2017 Blood Pressure 1: 108/70 Code : 8480-6 BMI: 24.2 Code : 14443-1 Heart Rate 1 : 92 bpm Height: 5'8" SpO2: 98% Weight: 159 lbs Functional Status No Functional Status data History of Present Illness Symptom Name Status Result Effective Date Notes Menstrual History menopause at age _ 08/22/2018 None Obstetrical History 4 total pregnancies 08/22/2018 None Obstetrical History 4 full term 08/22/2018 None 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 PATIENT, LEVEL IV Diagnosis: Encounter for gynecological examination (general) (routine) with abnormal findings[ICD10: Z01.411] Diagnosis: Polyp of cervix uteri[ICD10: N84.1] Diagnosis: Other fatigue[ICD10: R53.83] Shirley Ramos MD, [facility] CPT- 4: 50457 08/22/2018 ([id number]) OFFICE VISIT, NEW - LEVEL 4 Diagnosis: Diffuse cystic mastopathy of right breast[ICD10: N60.11] Diagnosis: Other fatigue[ICD10: R53.83] Shirley Ramos MD, [facility] CPT- 4: 44906 08/28/2017 Plan of Care Planned Activity Notes [...] vitamin b12 She needs a colonoscopy 08/22/2018 Patient Education: Patient Medication Summary Completed 08/22/2018 Care Plan: Referral Order SNOMED-CT : 205712506 Pending 08/22/2018 Care Plan: Referral Order SNOMED-CT : 997509251 Pending 08/22/2018 Visit Plan: Actinic Keratosis - treated with cryotherapy x 3, pt advised on how to appropriately care for the lesion. Call if not improved after thorough healing. 06/04/2018 Appointment: Yesenia Zayas WPtel: [facility] (15 min) Moderate 06/04/2018 Patient Education: Patient [...] caffeine intake. 08/28/2017 Appointment: Shirley Ramos WPtel: [facility] [facility] Patient 08/28/2017 Patient Education: Patient Medication Summary Completed 08/28/2017 Care Plan: SCREENINGMAMMOGRAPHYDIGITAL [facility] : 61052-0 Pending 08/28/2017 Referral: Kingsley Sneed WPtel:[phone] Referral Appointment Requested Referral: Yevgeniy Lola [facility]Ptel: [phone] [facility] [place] Referral Appointment Requested Instructions Comment . Blepharospasm [...] Cervical polyp - recommended evaluation by Dr. Vuong Fatigue - needs to have labs, start on vitamin d and vitamin b12 She needs a colonoscopy
--- OUTSIDE RECORDS SUMMARY | 2018-10-15 11:01 | XMS REPORT | CCD ---
Author Author Shirley Ramos Organization Shirley Ramos MD, [facility] Address [address] [place] [address] Phone Care Team Providers Care Phlebotomy Specialist Name Role Phone PP Unavailable CCM Unavailable Summary Purpose Interface Exchange Insurance Providers Payer name Policy type / Coverage type Covered republican ID Effective Begin Date Effective End Date WPS Medicare Part B Medicare Part B [id number] Unknown [facility] Medicare Part B [id number] Unknown Family history Sister Diagnosis Age At [...] y/o - they all live away from [place] 08/[address]: 361396509 Never smoker 08/28/[address]: 028893311 Never drinks alcohol 08/28/2017 Has the patient ever used illegal drugs? Unknown Has never used illegal drugs 08/28/2017 Allergies, Adverse Reactions, Alerts Substance Reaction Codes Entered Date Inactivated Date Status * NO KNOWN DRUG ALLERGIES Unknown 08/28/2017 No Inactive Date Active Past Medical History Illness Codes Condition Status Onset Date Resolved Date Actinic keratosis ICD- 9: 702.0 ICD-10: L57.0 Active 06/04/2018 Unknown Diffuse cystic mastopathy of right breast ICD-9: 610.1 ICD-10: N60.11 Active 08/28/2017 Unknown Other fatigue ICD-9: 780.79 ICD-10: R53.83 Active 08/28/2017 Unknown Problems Condition Codes Effective Dates Condition Status Actinic keratosis ICD- 9: 702.0 ICD-10: L57.0 06/04/2018 Active Diffuse cystic mastopathy of right breast ICD-9: 610.1 ICD-10: N60.11 08/28/2017 Active Other fatigue ICD-9: 780.79 ICD-10: R53.83 08/28/2017 Active Medications Medication Codes Instructions Start Date Stop Date Status Fill Instructions citalopram 20 mg tablet RxNorm: 735446 1 Tablet(s) PO daily 06/03/2018 Inactive citalopram 20 mg tablet RxNorm: 294619 1 Tablet(s) PO daily 11/18/2017 Inactive citalopram 20 mg tablet RxNorm: 612914 1 Tablet(s) PO daily No Start Date 08/27/2017 Inactive Medication Administered No Medication Administered data Immunizations Vaccine Codes Date Status Tetanus, Diptheria, Pertussis CVX: 113 completed Tetanus/Diptheria CVX: 113 12/30/2006 completed Assessments Condition Codes Effective Dates Actinic keratosis ICD-10: L57.0 ICD-9: 702.0 06/04/2018 Diffuse cystic mastopathy of right breast ICD-10: N60.11 ICD-9: 610.1 08/28/2017 Other fatigue ICD-10: R53.83 ICD-9: 780.79 08/28/2017 Reason For Visit Reason For Visit Effective Dates Notes skin lesion 06/04/2018 breast complaint 08/28/2017 Results [...] 28.6 pg 10/12/2017 Cbc With Differential Ord2 [place]% 9.2 % 10/12/2017 Cbc With Differential Ord2 [...] 1.55 K/ul 10/12/2017 Cbc With Differential Ord2 [place] ABS# 0.4 K/ul 10/12/2017 Cbc With Differential Ord2 Eos ABS# 0.3 K/ul 10/12/2017 Cbc With Differential Ord2 Baso ABS# 0.1 K/ul 10/12/2017 Comp Metabolic Ymp393 NA 140 mEq/L 08/29/2017 Comp Metabolic Myv078 K 4.2 mEq/L 08/29/2017 Comp Metabolic Aic088 CL 106 mEq/L 08/29/2017 Comp Metabolic Qkh906 CO2 28.0 mEq/L 08/29/2017 Comp Metabolic Nte612 ANION GAP 10 08/29/2017 Comp Metabolic Fjr073 GLUCOSE 81 mg/dL 08/29/2017 Comp Metabolic Zli607 Creat 0.6 mg/dL 08/29/2017 Comp Metabolic Evr756 eGFR 106 ml/min/1.73m2 08/29/2017 Comp Metabolic Tgb609 BUN 13 mg/dL 08/29/2017 Comp Metabolic Yrs226 B/C Ratio 21.7 Ratio 08/29/2017 Comp Metabolic Epk638 CALCIUM 9.3 mg/dL 08/29/2017 Comp Metabolic Ysv176 ALK PHOS 67 U/L 08/29/2017 Comp Metabolic Jor527 AST(SGOT) 16 U/L 08/29/2017 Comp Metabolic Log470 ALT(SGPT) 12 U/L 08/29/2017 Comp Metabolic Scw442 BILI T 0.5 mg/dL 08/29/2017 Comp Metabolic Ngl289 ALBUMIN 4.1 g/dL 08/29/2017 Comp Metabolic Wez132 TPRO 6.7 g/dL 08/29/2017 Comp Metabolic Mcm603 GLOB 2.6 g/dL 08/29/2017 Comp Metabolic Tyl587 A/G Ratio 1.5 Ratio 08/29/2017 Comp Metabolic Wof040 Osmo 279 mOsmo 08/29/2017 Cbc With Differential [...] 28.6 pg 08/29/2017 Cbc With Differential Ord2 [place]% 11.1 % 08/29/2017 Cbc With Differential Ord2 [...] 1.77 K/ul 08/29/2017 Cbc With Differential Ord2 [place] ABS# 0.5 K/ul 08/29/2017 Cbc With Differential [...] Result Effective Dates Constitutional No recent illness 2017 Constitutional No [...] Result Effective Dates Notes Full Exam - Dermatology Constitutional general appearance [...] - General 1994 Ears/Nose/Throat oral cavity/pharynx/larynx Overall: oropharyngeal mucosa clear [...] Procedure Codes Date DESTRUCT PREMALG LESION CPT-4: 15806 06/04/2018 Vital Signs Date Vital 06/04/2018 Blood Pressure 1: 122/78 Code : 8480-6 BMI: 24.2 Code : 99235-7 Heart Rate 1 : 87 bpm Height: 5'8" SpO2: 98% Weight: 159 lbs 08/28/2017 Blood Pressure 1: 108/70 Code : 8480-6 BMI: 24.2 Code : 07263-4 Heart Rate 1 : 92 bpm Height: 5'8" SpO2: 98% Weight: 159 lbs Functional Status No Functional Status data History of Present Illness Symptom Name Status Result Effective Date Notes Quality acute 2017 None Quality non-tender None [...] data Encounters Encounter Performer Location Codes Date () OFFICE VISIT, NEW - LEVEL 4 Diagnosis: Diffuse cystic mastopathy of right breast[ICD10: N60.11] Diagnosis: Other fatigue[ICD10: R53.83] Shirley Ramos MD, [facility] CPT- 4: 01567 08/28/2017 Plan of Care Planned Activity Notes Codes Status Date Visit Plan: Actinic Keratosis - treated with cryotherapy x 3, pt advised on how to appropriately care for the lesion. Call if not improved after thorough healing. 06/04/2018 Patient Education: Patient Medication Summary Completed [...] intake. 08/28/2017 Appointment: Shirley [facility]Ptel[phone] [facility] New Patient 08/28/2017 Patient Education: Patient Medication Summary Completed 08/28/2017 Care Plan: SCREENINGMAMMOGRAPHYDIGITAL [facility] : 28061-3 Pending 08/28/2017 Instructions Comment . Blepharospasm - chronic - [...]
--- OUTSIDE RECORDS SUMMARY | 2018-10-15 11:01 | XMS REPORT | CCD ---
Author Author Shirley Ramos Organization Shirley Ramos MD, [facility] Address [address] [place] [address] Phone Care Team Providers Care Cell Tuber Machine Name Role Phone PP Unavailable CCM Unavailable Summary Purpose Interface Exchange Insurance Providers Payer name Policy type / Coverage type Covered constitution party ID Effective Begin Date Effective End Date WPS Medicare Part B Medicare Part B [id number] Unknown [facility] Medicare Part B [id number] Unknown Family history Sister Diagnosis Age At [...] y/o - they all live [place] from [place] 08/[address]: 535117476 Never smoker 08/28/[address]: 101476307 Never drinks alcohol 08/28/2017 Has the patient [...] Fill Instructions citalopram 20 mg tablet RxNorm: 938244 1 Tablet(s) PO daily 06/03/2018 Inactive citalopram 20 mg tablet RxNorm: 520510 1 Tablet(s) PO daily 11/18/2017 Inactive citalopram 20 mg tablet RxNorm: 170432 1 Tablet(s) PO daily No Start Date [...] 28.6 pg 10/12/2017 Cbc With Differential Ord2 [place]% 9.2 % 10/12/2017 Cbc With Differential Ord2 [...] 1.55 K/ul 10/12/2017 Cbc With Differential Ord2 [place] ABS# 0.4 K/ul 10/12/2017 Cbc With Differential Ord2 Eos ABS# 0.3 K/ul 10/12/2017 Cbc With Differential Ord2 Baso ABS# 0.1 K/ul 10/12/2017 Comp Metabolic Cur719 NA 140 mEq/L 08/29/2017 Comp Metabolic Yns290 K 4.2 mEq/L 08/29/2017 Comp Metabolic Qiq887 CL 106 mEq/L 08/29/2017 Comp Metabolic Lcu297 CO2 28.0 mEq/L 08/29/2017 Comp Metabolic Njn379 ANION GAP 10 08/29/2017 Comp Metabolic Lkh981 GLUCOSE 81 mg/dL 08/29/2017 Comp Metabolic Kaj278 Creat 0.6 mg/dL 08/29/2017 Comp Metabolic Uni924 eGFR 106 ml/min/1.73m2 08/29/2017 Comp Metabolic Wtk481 BUN 13 mg/dL 08/29/2017 Comp Metabolic Lka158 B/C Ratio 21.7 Ratio 08/29/2017 Comp Metabolic Tqb652 CALCIUM 9.3 mg/dL 08/29/2017 Comp Metabolic Xli520 ALK PHOS 67 U/L 08/29/2017 Comp Metabolic Sam798 AST(SGOT) 16 U/L 08/29/2017 Comp Metabolic Oiy644 ALT(SGPT) 12 U/L 08/29/2017 Comp Metabolic Xng008 BILI T 0.5 mg/dL 08/29/2017 Comp Metabolic Wim000 ALBUMIN 4.1 g/dL 08/29/2017 Comp Metabolic Swb826 TPRO 6.7 g/dL 08/29/2017 Comp Metabolic Jyj664 GLOB 2.6 g/dL 08/29/2017 Comp Metabolic Sex028 A/G Ratio 1.5 Ratio 08/29/2017 Comp Metabolic Rlh598 Osmo 279 mOsmo 08/29/2017 Cbc With Differential [...] 28.6 pg 08/29/2017 Cbc With Differential Ord2 [place]% 11.1 % 08/29/2017 Cbc With Differential Ord2 MCHC 31.7 pg 08/29/2017 Cbc With Differential Ord2 Eos% 6.8 % 08/29/2017 Cbc With Differential Ord2 Baso% 1.2 % 08/29/2017 Cbc With Differential Ord2 PLT 315 K/ul 08/29/2017 Cbc With Differential Ord2 RDW 14.4 % 08/29/2017 Cbc With Differential Ord2 Neut ABS# 1.57 K/ul 08/29/2017 Cbc With Differential Ord2 Lymph ABS# 1.77 K/ul 08/29/2017 Cbc With Differential Ord2 [place] ABS# 0.5 K/ul 08/29/2017 Cbc With Differential [...] Procedure Codes Date DESTRUCT PREMALG LESION CPT-4: 94541 06/04/2018 Vital Signs Date Vital 06/04/2018 Blood Pressure 1: 122/78 Code : 8480-6 BMI: 24.2 Code : 31964-5 Heart Rate 1 : 87 bpm Height: 5'8" SpO2: 98% Weight: 159 lbs 08/28/2017 Blood Pressure 1: 108/70 Code : 8480-6 BMI: 24.2 Code : 87869-7 Heart Rate 1 : 92 bpm Height: [...] R53.83] [facility] CPT- 4: 34965 08/28/2017 Plan of Care Planned Activity Notes Codes Status Date Visit Plan: Actinic Keratosis - treated with cryotherapy x 3, pt advised on how to appropriately care for the lesion. Call if not improved after thorough healing. 06/04/2018 Appointment: Yesenia Zayas WPtel: [address] [place], [place] [phone] (15 min) Moderate 06/04/2018 Patient Education: Patient [...] caffeine intake. 08/28/2017 Appointment: Shirley Ramos WPtel[id number] [facility] 08/28/2017 Patient Education: Patient Medication Summary Completed 08/28/2017 Care Plan: SCREENINGMAMMOGRAPHYDIGITAL LOINC : 19714-4 Pending 08/28/2017 Instructions Comment . Blepharospasm - [...]
--- NOTE | 2018-10-15 14:01 | OPERATIVE REPORT ---
DATE OF SERVICE: 10/15/2018 PREOPERATIVE DIAGNOSIS: Screening colonoscopy. POSTOPERATIVE DIAGNOSIS: Transverse colon polyp and diverticulosis. PROCEDURE: Colonoscopy with hot biopsy polypectomy. SURGEON: Yanelis Sneed DO ANESTHESIA: Per MDA. ESTIMATED BLOOD LOSS: None. COMPLICATIONS: None. INDICATIONS: The patient is a 68-year-old female due for screening colonoscopy. She understands risks and benefits of procedure and wished to proceed with procedure. Consent was signed in the chart. PROCEDURE IN DETAIL: The patient was taken to the endoscopy suite, placed in left lateral recumbent position. Timeout was performed. Digital rectal exam was performed. There were no palpable polyps, masses or ulcerations. The scope was inserted in the rectum and advanced all the way to the cecum with minimal difficulty. Prep was adequate. Scope was then slowly retracted back. There were no polyps, masses or ulcerations in the cecum or ascending colon. Within the transverse colon, a polyp was present, which hot biopsy polypectomy was performed. No other polyps, masses or ulcerations. The scope was continuously retracted back into the descending colon with no polyps, masses or ulcerations. In the sigmoid colon, minimal amount of diverticulosis was present. No other pathology. Scope was continued to be slowly retracted back to the rectum, where it was also retroflexed noting some slight internal hemorrhoids. Scope was returned to its normal position, slowly withdrawn until completely removed, noting no other pathology. The patient tolerated the procedure well without any complications. She was taken to the recovery room in stable condition. RECOMMENDATIONS: High fiber diet. The patient also will follow up in the office in 2 weeks to discuss pathology results. The patient will need repeat colonoscopy in 5 years. If she has any issues before that, she should be seen at that time. Job ID: [id number] DocumentID: [id number] Dictated Date: 10/15/2018 09:57:48 Suspender Maker Date: 10/15/2018 14:00:03 Dictated By: YANELIS SNEED DO
== END 2018-10-15 10:35 | disposition home or self-care (01) ==
LOC: ENDO 07:38
PROVIDERS: ATTEND Surgery
DX: Z12.11 Encounter for screening for malignant neoplasm of colon (principal); K63.5 Polyp of colon; K57.30 Diverticulosis of large intestine without perforation or abscess without bleeding

== ENCOUNTER → 2018-12-16 | Outpatient (CLI) | payer MEDICARE ==
--- NOTE | 2018-12-16 11:04 | Diagnostic Imaging Report ---
Indication: Routine screening. Comparison is made with prior mammogram from 09/04/2017 and 01/29/2012. 2-D and 3-D bilateral screening mammography was performed with CAD. Both breasts are heterogeneously dense, limiting the sensitivity of mammography. Nodular densities in both breasts appear to be stable and likely benign. No dominant mass or malignant appearing microcalcifications are seen. Axillae are unremarkable. Impression: BI-RADS category 2 No mammographic features suspicious for malignancy are identified. ACR BI-RADS Category 2: Benign findings. Result letter will be mailed to the patient. Note: At least 10% of breast cancer is not imaged by mammography. Dictated by: Dictated on workstation # [id number]
== END ==
LOC: RAD 09:07
PROVIDERS: ATTEND Family Medicine
DX: Z12.31 Encounter for screening mammogram for malignant neoplasm of breast (principal)
CPT/HCPCS: 77067

== ENCOUNTER → 2019-02-25 | Outpatient (CLI) | payer MEDICARE ==
[2019-02-25 12:58] LABS: FREE T4 (FREE THYROXINE) 0.92 NG/DL (0.70-1.48); TSH (THYROID ANALYZER) 1.8 UIU/ML (0.35-4.94)
--- NOTE | 2019-02-25 15:35 | Diagnostic Imaging Report ---
PROCEDURE: US Thyroid. TECHNIQUE: Multiple real-time grayscale images were obtained of the thyroid in various projections. INDICATION: Thyroid nodules. FINDINGS: The previous thyroid ultrasound exam of 08/26/2018 noted bilateral thyroid nodules. The largest of these nodules was in the left lobe and measured 0.8 x 1.2 cm. That finding is again evident and does not appear to have changed significantly. The roughly 1 cm hypoechoic nodule in the superior pole of the right lobe seen previously is also again visualized and no different. No new nodule has developed. The thyroid gland itself is not enlarged with the right lobe measuring 4.1 x 1.5 x 1.3 cm and the left lobe measuring 4.3 x 1.5 x 1.0 cm. IMPRESSION: The thyroid gland is stable in appearance when compared to the prior exam. No new abnormality has developed. Dictated by: Dictated on workstation # [id number]
== END ==
LOC: RAD 11:42
PROVIDERS: ATTEND Otolaryngology Otolaryngology/Facial Plastic Surgery
DX: E04.2 Nontoxic multinodular goiter (principal)
CPT/HCPCS: 36415; 76536; 84439; 84443

== ENCOUNTER 2019-08-25 09:51 | Outpatient (RCR) | payer MEDICARE | END 2019-11-23 | disposition home or self-care (01) | LOC: CARD 09:51 | PROVIDERS: ATTEND Family Medicine | DX: I49.9 Cardiac arrhythmia, unspecified (principal) ==

== ENCOUNTER 2019-09-01 20:45 | Outpatient (CLI) | payer MEDICARE | END 2019-09-02 06:00 | disposition home or self-care (01) | LOC: SLEEP 20:45 | PROVIDERS: ATTEND Family Medicine | DX: G47.36 Sleep related hypoventilation in conditions classified elsewhere (principal); I49.9 Cardiac arrhythmia, unspecified | CPT/HCPCS: 95810 ==

== ENCOUNTER → 2020-03-22 | Outpatient (CLI) | payer MEDICARE ==
[~2020-03-22] VITALS: Ht 177 cm; Wt 65.0 kg
[~2020-03-22] MED LIST changes: +CATHETER FLUSH 10 ML SYR IV PRN
[2020-03-22 11:47] VITALS: BP 117/86
--- NOTE | 2020-03-22 11:47 | Cardiology Stress Test Report ---
Stress Test Report Date of Procedure/Referring: Date of Procedure: Mar 22, 2020 PCP Galina Marcano MD Admitting Physician Shirley Ramos MD Indications: Palpitation Baseline Heart Rate: 71 Baseline Blood Pressure: Blood Pressure Systolic: 117 Blood Pressure Diastolic: 86 Baseline EKG: Baseline EKG: normal sinus rhythm Summary: After explaining the procedure and details to the patient, she signed the consent and was brought to the stress nuclear laboratory. Patient exercised on standard Garett protocol, EKG, heart rate and blood pressure were monitored continuously, resting and stress doses of radio tracer were injected, imaging was acquired and reviewed in the short axis, horizontal long axis and vertical long axis views Patient was able to exercise for a total of 2:30 minutes on Garett protocol, METs 4 Maximum heart rate 140 Maximum blood pressure 188/107 Stress EKG, Minimal nondiagnostic changes Recovery EKG, Return to baseline TID: 1.02 SSS: 4 SDS: 2 EF: 70 Conclusion: 1. Poor exercise tolerance for a total of 2 minutes and 30 seconds on Garett protocol total of 4.0 METs achieving 92 percent of maximum expected heart rate 2. Hypertensive response to exercise with peak blood pressure 188/107 returned to baseline during recovery 3. Minimal nondiagnostic EKG changes with exercise returned to baseline during recovery 4. Mild decreased uptake at the mid to apical inferior wall with subtle reversibility, no significant ischemia or infarction on SPECT images 5. Normal left ventricular size, EF 70 percent GALINA MARCANO MD Mar 22, 2020 11:47
== END ==
LOC: CARD 07:45
PROVIDERS: ATTEND Internal Medicine Cardiovascular Disease
DX: I10 Essential (primary) hypertension (principal); R00.2 Palpitations; R06.09 Other forms of dyspnea
CPT/HCPCS: 78452; 93017; A9502

== ENCOUNTER → 2020-03-23 | Outpatient (CLI) | payer MEDICARE ==
[~2020-03-23] MED LIST changes: -CATHETER FLUSH 10 ML SYR IV PRN
== END ==
LOC: CARD 09:00
PROVIDERS: ATTEND Internal Medicine Cardiovascular Disease
DX: I10 Essential (primary) hypertension (principal); R00.2 Palpitations
CPT/HCPCS: 93306

== ENCOUNTER → 2020-04-12 | Outpatient (CLI) | payer MEDICARE ==
--- NOTE | 2020-04-12 11:26 | Diagnostic Imaging Report ---
PROCEDURE: US Thyroid. TECHNIQUE: Multiple real-time grayscale images were obtained of the thyroid in various projections. INDICATION: Multinodular goiter. Comparison is made with prior ultrasound from 02/25/2019. FINDINGS: Right lobe of thyroid measures 4.2 x 1.4 x 1.4 cm and the left lobe measures 4.0 x 1.5 x 1.3 cm. Isthmus is 2 mm in thickness. Solid, circumscribed nodule upper pole right lobe is approximately 8 mm x 7 mm x 7 mm, stable. A cystic mass mid right lobe measures 9 mm x 6 mm x 5 mm, stable. The cystic mass midportion of the left lobe measures 1.5 x 0.8 x 0.7 cm, minimally larger when compared with prior examination 1 year earlier. No new mass is detected. IMPRESSION: Bilateral thyroid nodules. Overall appearance is very similar to examination from 1 year earlier. Continued follow-up could be obtained. Dictated by: Dictated on workstation # [id number]
== END ==
LOC: RAD 11:00
PROVIDERS: ATTEND Otolaryngology Otolaryngology/Facial Plastic Surgery
DX: E04.2 Nontoxic multinodular goiter (principal)
CPT/HCPCS: 76536

== ENCOUNTER → 2021-07-22 | Outpatient (CLI) | payer MEDICARE | LOC: LABNPT 08:48 | PROVIDERS: ATTEND Orthopaedic Surgery Adult Reconstructive Orthopaedic Surgery | DX: Z20.822 Contact with and (suspected) exposure to COVID-19 (principal) | CPT/HCPCS: 87635 ==

== ENCOUNTER → 2022-04-18 | Outpatient (CLI) | payer MEDICARE ==
--- NOTE | 2022-04-18 20:58 | Diagnostic Imaging Report ---
PROCEDURE: US Thyroid. TECHNIQUE: Multiple real-time grayscale images were obtained of the thyroid in various projections. INDICATION: Follow-up thyroid nodules. Comparison with 04/12/2020 ultrasound. FINDINGS: The right lobe measures 4.6 x 1.2 x 1.4 cm. The left lobe measures 4 x 1.3 x 1.3 cm. The isthmus measures 2 mm. There is a solid oval slightly hypoechoic nodule in the upper pole measuring 9 x 5 x 8 mm, wider than tall. No calcifications. There are several benign-appearing colloid cysts noted bilaterally. These are unchanged. IMPRESSION: 1. Solid nodule, upper pole, right lobe, 9 mm in greatest dimension considered mildly suspicious. TI-RADS 3. Dictated by: Dictated on workstation # [id number]
== END ==
LOC: RAD 12:45
PROVIDERS: ATTEND Otolaryngology Otolaryngology/Facial Plastic Surgery
DX: E04.1 Nontoxic single thyroid nodule (principal)
CPT/HCPCS: 76536

== ENCOUNTER 2023-01-30 16:34 | Outpatient (CLI) | payer MEDICARE ==
[~2023-01-30] VITALS: Ht 177.8 cm; Wt 59.1 kg
[2023-02-01] MEDS ORDERED: MTP25TSR PO (09:58)
[2023-02-01] MEDS ORDERED: ATOR10TA66 PO (09:58)
== END 2023-02-01 10:26 | disposition home or self-care (01) ==
LOC: PREOP 16:34
PROVIDERS: ATTEND Specialist
DX: Z01.818 Encounter for other preprocedural examination (principal)

== ENCOUNTER 2023-02-02 07:51 | Day surgery (SDC) | payer MEDICARE ==
[~2023-02-02] VITALS: Ht 177.8 cm; Wt 59.1 kg
[~2023-02-02 07:51] MED LIST changes: +ATOR10TA66 PO; +MTP25TSR PO
[2023-02-02] MEDS: TETRACAINE 0.5% OPHTH SOLN 4 ML BTL (SINGLE DOSE ONLY) OU PRN ×4 (08:25→08:46)
[2023-02-02] MEDS ORDERED: MOXIFLOXACIN OPHTH SOLN 5 MG/ML 0.3 ML SYRINGE OP ONE (08:30)
[2023-02-02] MEDS ORDERED: TIMOLOL 0.5% (CATARACTS) 0.3 ML BTL OU PRN (08:30)
[2023-02-02] MEDS ORDERED: LIDOCAINE PF 1% 2 ML VIAL IR PRN (08:30)
[2023-02-02] MEDS ORDERED: POVIDONE (BETADINE) OPHTH SOLN 5% 30 ML OP ONE (08:30)
[2023-02-02] MEDS: TROPICAMIDE 1% OPH SOLN (MYDRIACYL) 15 ML BTL OP SCH ×3 (08:35→08:46)
[2023-02-02] MEDS: PHENYLEPHRINE 10% OPHTH (NEO-SYN) 5 ML BTL OU SCH ×3 (08:35→08:46)
[2023-02-02 08:38] VITALS: BP 125/79
--- NOTE | 2023-02-02 09:09 | Ophthalmologist Pre-Op Note ---
Pre-Operative Progress Note H&P Reviewed The H&P was reviewed, patient examined and no changes noted. Date H&P Reviewed: Feb 02, 2023 Time H&P Reviewed: 09:08 Pre-Op Dx Cataract, Right Eye SARABJIT GAUTHIER MD Feb 02, 2023 09:08
[2023-02-02] MEDS ORDERED: MIDAZOLAM 2 MG/2 ML (VERSED) VIAL ONE (09:12)
--- NOTE | 2023-02-02 09:28 | Ophthalmology Operative Report ---
Cataract removal/placement IOL PREOPERATIVE DIAGNOSIS: Cataract Right Eye POSTOPERATIVE DIAGNOSIS: Cataract Right Eye PROCEDURE: Cataract removal and placement of posterior chamber implant, right eye SURGEON: Fihs Gauthier ANESTHESIA: Topical with sedation COMPLICATIONS: None ESTIMATED BLOOD LOSS: Minimal DESCRIPTION OF PROCEDURE: After proper informed consent was obtained, the patient, a 72 female, was taken to the Operating Room and the right eye was anesthetized with tetracaine. The right eye was then prepped and draped in the usual manner. A wire lid speculum was placed. A paracentesis was made at the left hand position. Preservative free lidocaine was injected into the anterior chamber followed by viscoelastic. A clear corneal incision was made in the temporal position. A capsulorrhexis was preformed and the central nuclear and cortical material were removed. The posterior capsule was polished and Gerald 22.5 [id number] IOL was placed into the capsular bag. The residual viscoelastic was aspirated and balanced saline solution was injected into the anterior chamber. Moxifloxacin was injected into the anterior chamber. The wound was checked and found to be water tight. The patient tolerated the procedure well without complications. FISH GAUTHIER MD Feb 02, 2023 09:28
[2023-02-02 09:38] VITALS: BP 123/76
--- NOTE | 2023-02-02 13:54 | Anesthesia-General Post-Op ---
MAC Patient Condition Mental Status/LOC: Same as Preop Cardiovascular: Satisfactory Nausea/Vomiting: Absent Respiratory: Satisfactory Pain: Controlled Complications: Absent Post Op Complications Complications None Follow Up Care/Instructions Patient Instructions None needed. Anesthesiology Discharge Order Discharge Order Patient is doing well, no complaints, stable vital signs, no apparent adverse anesthesia problems. No complications reported per nursing. BLAS ZAMORA CRNA Feb 02, 2023 13:54
== END 2023-02-02 09:42 | disposition home or self-care (01) ==
LOC: SDC 07:51
PROVIDERS: ATTEND Specialist
DX: H25.9 Unspecified age-related cataract (principal)
CPT/HCPCS: 66984; V2632

== ENCOUNTER → 2023-02-12 | Outpatient (CLI) | payer MEDICARE | END | disposition home or self-care (01) | LOC: PREOP 11:53 | PROVIDERS: ATTEND Specialist | DX: Z01.818 Encounter for other preprocedural examination (principal) ==

== ENCOUNTER 2023-04-12 12:49 | Outpatient (CLI) | payer MEDICARE | END 2023-04-12 13:05 | disposition home or self-care (01) | LOC: PREOP 12:49 | PROVIDERS: ATTEND Specialist | DX: Z01.818 Encounter for other preprocedural examination (principal) ==

== ENCOUNTER 2023-04-20 08:52 | Day surgery (SDC) | payer MEDICARE ==
[~2023-04-20] VITALS: Ht 178 cm; Wt 56.8 kg
[2023-04-20 09:00] VITALS: BP 135/74
[2023-04-20] MEDS ORDERED: LIDOCAINE PF 1% 2 ML VIAL IR PRN (09:00)
[2023-04-20] MEDS ORDERED: TIMOLOL 0.5% (CATARACTS) 0.3 ML BTL OU PRN (09:00)
[2023-04-20] MEDS ORDERED: POVIDONE IODINE OPHTH SOLN 5% 30 ML OP ONE (09:00)
[2023-04-20] MEDS ORDERED: MOXIFLOXACIN OPHTH SOLN 5 MG/ML 0.5 ML SYRINGE OP ONE (09:00)
[2023-04-20] MEDS: TETRACAINE 0.5% OPHTH SOLN 4 ML BTL (SINGLE DOSE ONLY) OU PRN ×4 (09:04→09:21)
[2023-04-20] MEDS: TROPICAMIDE 1% OPH SOLN (MYDRIACYL) 15 ML BTL OP SCH ×3 (09:12→09:21)
[2023-04-20] MEDS: PHENYLEPHRINE 10% OPHTH SOLN 5 ML BTL OU SCH ×3 (09:12→09:22)
--- NOTE | 2023-04-20 09:40 | Ophthalmologist Pre-Op Note ---
Pre-Operative Progress Note H&P Reviewed The H&P was reviewed, patient examined and no changes noted. Date H&P Reviewed: Apr 20, 2023 Time H&P Reviewed: 09:40 Pre-Op Dx Cataract, Left Eye SARABJIT GAUTHIER MD Apr 20, 2023 09:40
[2023-04-20] MEDS ORDERED: MIDAZOLAM INJ 2 MG/2 ML VIAL ONE (09:50)
--- NOTE | 2023-04-20 10:06 | Ophthalmology Operative Report ---
Cataract removal/placement IOL PREOPERATIVE DIAGNOSIS: Cataract Left Eye POSTOPERATIVE DIAGNOSIS: Cataract Left Eye PROCEDURE: Cataract removal and placement of posterior chamber implant, left eye SURGEON: Fish Gauthier ANESTHESIA: Topical with sedation COMPLICATIONS: None ESTIMATED BLOOD LOSS: Minimal DESCRIPTION OF PROCEDURE: After proper informed consent was obtained, the patient, a 73 female, was taken to the Operating Room and the left eye was anesthetized with tetracaine. The left eye was then prepped and draped in the usual manner. A wire lid speculum was placed. A paracentesis was made at the left hand position. Preservative free lidocaine was injected into the anterior chamber followed by viscoelastic. A clear corneal incision was made in the temporal position. A capsulorrhexis was preformed and the central nuclear and cortical material were removed. The posterior capsule was polished and an Gerald 24.0 CNA0T0 was placed into the capsular bag. The residual viscoelastic was aspirated and balanced saline solution was injected into the anterior chamber. Moxifloxacin was injected into the anterior chamber. The wound was checked and found to be water tight. The patient tolerated the procedure well without complications. FISH GAUTHIER MD Apr 20, 2023 10:06
[2023-04-20 10:15] VITALS: BP 108/73
--- NOTE | 2023-04-20 12:14 | Anesthesia-General Post-Op ---
MAC Patient Condition Mental Status/LOC: Same as Preop Cardiovascular: Satisfactory Nausea/Vomiting: Absent Respiratory: Satisfactory Pain: Controlled Complications: Absent Post Op Complications Complications None Follow Up Care/Instructions Patient Instructions None needed. Anesthesiology Discharge Order Discharge Order Patient is doing well, no complaints, stable vital signs, no apparent adverse anesthesia problems. No complications reported per nursing. IRENE MORATAYA CRNA Apr 20, 2023 12:14
== END 2023-04-20 10:17 | disposition home or self-care (01) ==
LOC: SDC 08:52
PROVIDERS: ATTEND Specialist
DX: H25.9 Unspecified age-related cataract (principal)
CPT/HCPCS: 66984; C2632

== ENCOUNTER → 2023-05-03 | Outpatient (CLI) | payer MEDICARE ==
--- NOTE | 2023-05-03 15:09 | Diagnostic Imaging Report ---
Indication: Routine screening. Comparison is made with prior mammograms from 12/16/2018 and 09/04/2017. 2-D and 3-D bilateral screening mammography was performed with CAD. Both breasts are heterogeneously dense, limiting the sensitivity of mammography. The parenchymal pattern is stable. No mass or malignant-appearing microcalcifications are identified. There are benign calcifications bilaterally. Axillae are unremarkable. IMPRESSION: BI-RADS Category 2 No mammographic features suspicious for malignancy are identified. ACR BI-RADS Category 2: Benign findings. Result letter will be mailed to the patient. Note: At least 10% of breast cancer is not imaged by mammography. Dictated by: Dictated on workstation # [id number]
== END ==
LOC: RAD 10:03
PROVIDERS: ATTEND Physician Assistant
DX: Z12.31 Encounter for screening mammogram for malignant neoplasm of breast (principal)
CPT/HCPCS: 77063; 77067

== ENCOUNTER → 2023-05-04 | Outpatient (CLI) | payer MEDICARE ==
--- NOTE | 2023-05-04 14:27 | Diagnostic Imaging Report ---
PROCEDURE: US Thyroid. TECHNIQUE: Multiple real-time grayscale images were obtained of the thyroid in various projections. INDICATION: Follow-up thyroid nodules. COMPARISON: 04/18/2022. FINDINGS: Both thyroid lobes demonstrate a mildly heterogeneous background echotexture. Color flow Doppler demonstrates normal and symmetric vascularity bilaterally. The right lobe measures 4.6 cm in length, 1.1 cm AP, and 1.3 cm transverse. The left lobe measures 4.4 cm in length, 1.1 cm AP, and 1.3 cm transverse. The isthmus measures 0.2 cm. Nodules are seen within both lobes of the thyroid. The largest solid nodule in the right lobe of the thyroid measures 1.0 x 0.8 x 0.7 cm, previously measuring 0.9 x 0.5 x 0.8 cm. This demonstrates associated small calcifications. The largest nodule in the left lobe of the thyroid demonstrates a part solid part cystic composition and measures 0.9 x 0.4 x 0.7 cm, previously measuring 1.3 x 0.6 x 0.7 cm. IMPRESSION: 1. Essentially stable size of the nodules in both lobes of the thyroid. The dominant nodule in the right lobe of the thyroid demonstrates associated calcifications and would be consistent with a TI-RADS 4 nodule. Based on size criteria, continued follow-up is recommended in one year with thyroid ultrasound. Dictated by: Dictated on workstation # [id number]
== END ==
LOC: RAD 09:27
PROVIDERS: ATTEND Otolaryngology Otolaryngology/Facial Plastic Surgery
DX: E04.2 Nontoxic multinodular goiter (principal)
CPT/HCPCS: 76536